=== PATIENT | male | born 1945 | race African-American/Black ===

== ENCOUNTER 2022-10-23 12:51 | Observation (INO) | payer OTHER ==
[2022-10-23 14:01] LABS: BASO % 1.3 % (0-2.0); EOS % 0.2 % (0-4.5); HEMATOCRIT 25.4 % (35.4-49); HEMOGLOBIN 7.3 GM/dL (11.7-16.9); LYMPH % 13.1 % (8-40); MCH 20.1 pg (25.7-33.7); MCHC 28.9 g/dl (32.0-35.9); MEAN CELL VOLUME 69.5 fl (80-96); MONO % 5.1 % (3.8-10.2); NEUT % 80.3 % (42.8-82.8); PLATELET COUNT 319 10^3/uL (134-434); RBC 3.66 M/mm3 (4.00-5.60); RDW 21.6 % (11.9-15.9); RETICULOCYTES 1.59 % (0.5-1.5); WHITE BLOOD COUNT 6.9 K/mm3 (4.0-10.0)
[2022-10-23] MEDS ORDERED: LISINOPRIL 20 MG TABLET PO ONE (14:12)
[2022-10-23] MEDS ORDERED: LISINOPRIL 20 MG TABLET ONE (14:17)
[2022-10-23 14:28] LABS: POTASSIUM 4.4 mmol/L (3.5-5.1)
[2022-10-23 14:30] LABS: ALBUMIN 3.7 g/dl (3.4-5.0); BLOOD UREA NITROGEN 21.3 mg/dL (7-18)
[2022-10-23 14:33] LABS: CREATININE 2.1 mg/dL (0.55-1.3)
[2022-10-23 14:35] LABS: BILIRUBIN,TOTAL 0.2 mg/dL (0.2-1)
[2022-10-23 15:03] LABS: ANISOCYTOSIS 3+; MACROCYTOSIS 1+
[2022-10-23] MEDS: ATORVASTATIN CA 20 MG TABLET (FP) PO SCH (21:27)
[2022-10-23 23:29] VITALS: BMI 25.5
[2022-10-24 09:52] LABS: BASO % 0.6 % (0-2.0); HEMATOCRIT 30.5 % (35.4-49); HEMOGLOBIN 9.4 GM/dL (11.7-16.9); LYMPH % 15.8 % (8-40); MCH 21.6 pg (25.7-33.7); MCHC 30.9 g/dl (32.0-35.9); MEAN CELL VOLUME 69.9 fl (80-96); MEAN PLT VOLUME 8.6 fl (7.5-11.1); MONO % 6.1 % (3.8-10.2); NEUT % 76.5 % (42.8-82.8); PLATELET COUNT 296 10^3/uL (134-434); RBC 4.36 M/mm3 (4.00-5.60); RDW 22.5 % (11.9-15.9); WHITE BLOOD COUNT 7.6 K/mm3 (4.0-10.0)
[2022-10-24 10:14] LABS: POTASSIUM 4.2 mmol/L (3.5-5.1)
[2022-10-24 10:28] LABS: BLOOD UREA NITROGEN 16.8 mg/dL (7-18); CALCIUM 9.2 mg/dL (8.5-10.1); MAGNESIUM 2.2 mg/dL (1.8-2.4)
[2022-10-24 10:29] LABS: ALBUMIN 3.5 g/dl (3.4-5.0)
[2022-10-24 10:31] LABS: CREATININE 1.8 mg/dL (0.55-1.3)
[2022-10-24 10:33] LABS: BILIRUBIN,TOTAL 0.7 mg/dL (0.2-1); TOT PROT 7.6 g/dl (6.4-8.2)
[2022-10-24] MEDS: LISINOPRIL 20 MG TABLET PO SCH (11:13)
[2022-10-24] MEDS: DEXTROSE 5%-NORMAL SALINE 1,000 ML IV SCH (11:13)
[2022-10-24] MEDS: INSULIN SLIDING SCALE (NOVOLOG) 1 VIAL SQ SCH ×3 (12:59→21:30)
[2022-10-24] MEDS: POLYETHYLENE GLYCOL (HEALTHYLAX) 3350 17 GM PACKET PO SCH ×2 (16:44→21:29)
[2022-10-24] MEDS: ATORVASTATIN CA 20 MG TABLET (FP) PO SCH (21:29)
[2022-10-25] MEDS: POLYETHYLENE GLYCOL (HEALTHYLAX) 3350 17 GM PACKET PO SCH ×3 (06:39→22:39)
[2022-10-25] MEDS: INSULIN SLIDING SCALE (NOVOLOG) 1 VIAL SQ SCH ×4 (06:41→22:42)
[2022-10-25] MEDS: LISINOPRIL 20 MG TABLET PO SCH (09:55)
[2022-10-25] MEDS: DEXTROSE 5%-NORMAL SALINE 1,000 ML IV SCH ×2 (09:55→13:50)
[2022-10-25] MEDS ORDERED: PEG 3350/NA SULF BICARB CL/KCL 4000 ML SOLN.RECON PO ONE (10:00)
[2022-10-25] MEDS ORDERED: INSULIN (NOVOLOG) ASPART 100 UNITS/ML 10ML VIAL ONE ×2 (11:16→22:07)
[2022-10-25 12:16] LABS: BASO % 0.6 % (0-2.0); EOS % 0.9 % (0-4.5); HEMATOCRIT 30.8 % (35.4-49); HEMOGLOBIN 9.3 GM/dL (11.7-16.9); LYMPH % 12.4 % (8-40); MCH 21.6 pg (25.7-33.7); MCHC 30.1 g/dl (32.0-35.9); MEAN CELL VOLUME 71.6 fl (80-96); MEAN PLT VOLUME 9.2 fl (7.5-11.1); MONO % 3.4 % (3.8-10.2); NEUT % 82.7 % (42.8-82.8); PLATELET COUNT 285 10^3/uL (134-434); RBC 4.31 M/mm3 (4.00-5.60); RDW 23.1 % (11.9-15.9); WHITE BLOOD COUNT 8.2 K/mm3 (4.0-10.0)
[2022-10-25 12:17] LABS: INR 1.23 (0.83-1.09); PROTHROMBIN TIME (PATIENT) 14.2 SEC (9.7-13.0)
[2022-10-25 12:54] LABS: POTASSIUM 4.9 mmol/L (3.5-5.1)
[2022-10-25 13:43] LABS: CALCIUM 8.7 mg/dL (8.5-10.1)
[2022-10-25 13:44] LABS: BLOOD UREA NITROGEN 13.8 mg/dL (7-18)
[2022-10-25 13:46] LABS: CREATININE 1.8 mg/dL (0.55-1.3)
[2022-10-25] MEDS ORDERED: BISACODYL 5 MG TABLET.DR (FP) PO ONE (20:00)
[2022-10-25] MEDS: ATORVASTATIN CA 20 MG TABLET (FP) PO SCH (22:39)
[2022-10-26] MEDS: POLYETHYLENE GLYCOL (HEALTHYLAX) 3350 17 GM PACKET PO SCH ×2 (05:45→14:19)
[2022-10-26] MEDS ORDERED: INSULIN (NOVOLOG) ASPART 100 UNITS/ML 10ML VIAL ONE (05:58)
[2022-10-26] MEDS: INSULIN SLIDING SCALE (NOVOLOG) 1 VIAL SQ SCH ×2 (06:09→11:16)
[2022-10-26] MEDS: DEXTROSE 5%-NORMAL SALINE 1,000 ML IV SCH (10:13)
[2022-10-26] MEDS: LISINOPRIL 20 MG TABLET PO SCH (10:14)
[2022-10-26 15:25] VITALS: BP 158/95; PULSE 74; RESP 18; TEMP 98.7
[2022-10-26 18:12] LABS: GLIADIN ANTIBODY IGA 6 units (0-19); GLIADIN ANTIBODY IGG 2 units (0-19); TRANSGLUTAMINASE IGG 5 U/mL (0-5)
== END 2022-10-26 16:55 | disposition home or self-care (01) ==
LOC: JER 12:51 → JERBED 16:50 → J8W 20:51
PROVIDERS: ADMIT Internal Medicine; ATTEND Internal Medicine
PROC: 0DBL8ZZ Excision of Transverse Colon, Via Natural or Artificial Opening Endoscopic (ICD-10-PCS; 2022-10-26)
PROC: 0DBM8ZZ Excision of Descending Colon, Via Natural or Artificial Opening Endoscopic (ICD-10-PCS; 2022-10-26)
PROC: 0DBK8ZZ Excision of Ascending Colon, Via Natural or Artificial Opening Endoscopic (ICD-10-PCS; principal; 2022-10-26 13:30)
DX: D50.0 Iron deficiency anemia secondary to blood loss (chronic) (principal); I10 Essential (primary) hypertension; E11.9 Type 2 diabetes mellitus without complications; E78.5 Hyperlipidemia, unspecified; K27.5 Chronic or unspecified peptic ulcer, site unspecified, with perforation; D12.6 Benign neoplasm of colon, unspecified; Z98.0 Intestinal bypass and anastomosis status; Z87.891 Personal history of nicotine dependence
CPT/HCPCS: 36415; 36430; 80048; 80053; 82272; 82728; 82784; 82962; 83010; 83516; 83540; 83550; 83615; 83735; 84155; 84165; 84466; 85025; 85045; 85610; 86334; 86850; 86900; 86901; 86922; 88305-TC; 88342-TC; 93005; 93010; 93306-TC; 99285-25; G0378; P9058

== ENCOUNTER 2022-10-30 07:22 | Observation (INO) | payer OTHER ==
[2022-10-30 08:41] LABS: HEMATOCRIT 32.7 % (35.4-49); HEMOGLOBIN 9.9 GM/dL (11.7-16.9); MCH 21.4 pg (25.7-33.7); MCHC 30.2 g/dl (32.0-35.9); MEAN CELL VOLUME 70.9 fl (80-96); MEAN PLT VOLUME 8.9 fl (7.5-11.1); PLATELET COUNT 284 10^3/uL (134-434); RBC 4.61 M/mm3 (4.00-5.60); RDW 25.5 % (11.9-15.9)
[2022-10-30 08:42] LABS: URINE APPEARANCE CLEAR; URINE BILIRUBIN NEGATIVE (NEGATIVE); URINE COLOR YELLOW; URINE GLUCOSE (UA) NEGATIVE (NEGATIVE); URINE KETONE NEGATIVE (NEGATIVE); URINE LEUK ESTERASE NEGATIVE (NEGATIVE); URINE NITRITE NEGATIVE (NEGATIVE); URINE PROTEIN TRACE (NEGATIVE); URINE UROBILINOGEN 0.2 mg/dL (0.2-1.0)
[2022-10-30 08:47] LABS: INR 1.09 (0.83-1.09); PROTHROMBIN TIME (PATIENT) 12.6 SEC (9.7-13.0)
[2022-10-30 08:50] LABS: ACTIVATED PTT 32.1 SECONDS (25.2-36.5)
[2022-10-30 09:17] LABS: COCAINE, UR NEGATIVE (NEGATIVE); METHADONE, UR NEGATIVE (NEGATIVE); OPIATES, URI NEGATIVE (NEGATIVE); PHENCYCLIDINE,URINE NEGATIVE (NEGATIVE); URINE AMPHETAMINES NEGATIVE (NEGATIVE); URINE BARBITURATES NEGATIVE (NEGATIVE); URINE BENZODIAZEPINES NEGATIVE (NEGATIVE)
[2022-10-30 09:22] LABS: CHLORIDE 111 mmol/L (98-107); POTASSIUM 4.2 mmol/L (3.5-5.1); SODIUM 145 mmol/L (136-145)
[2022-10-30 09:24] LABS: ALBUMIN 3.6 g/dl (3.4-5.0); ANION GAP 8 MMOL/L (8-16); BLOOD UREA NITROGEN 10.4 mg/dL (7-18); CALCIUM 9.3 mg/dL (8.5-10.1); CO2 27 mmol/L (21-32); GLUCOSE,RANDOM 68 mg/dL (74-106); MAGNESIUM 2.2 mg/dL (1.8-2.4)
[2022-10-30 09:27] LABS: CREATININE 1.7 mg/dL (0.55-1.3); SGPT/ALT 22 U/L (13-61)
[2022-10-30 09:28] LABS: SGOT/AST 23 U/L (15-37)
[2022-10-30 09:29] LABS: BILIRUBIN,TOTAL 0.3 mg/dL (0.2-1); TOT PROT 7.8 g/dl (6.4-8.2)
[2022-10-30 09:30] LABS: ALK PHOS 85 U/L (45-117)
[2022-10-30 09:50] LABS: ANISOCYTOSIS 1+; MACROCYTOSIS 0
[2022-10-30] MEDS ORDERED: DEXTROSE 5%-0.45% SALINE 1,000 ML IV SCH (11:45)
[2022-10-30] MEDS ORDERED: hydrALAZINE HCL 20 MG/ML VIAL IVPUSH ONE (17:56)
[2022-10-30 18:11] VITALS: BMI 24.7
[2022-10-30] MEDS: ATORVASTATIN CA 20 MG TABLET (FP) PO SCH (21:21)
[2022-10-31 09:39] LABS: BASO % 0.5 % (0-2.0); HEMATOCRIT 29.8 % (35.4-49); HEMOGLOBIN 9.3 GM/dL (11.7-16.9); LYMPH % 12.6 % (8-40); MCH 21.8 pg (25.7-33.7); MCHC 31.2 g/dl (32.0-35.9); MEAN PLT VOLUME 9.1 fl (7.5-11.1); MONO % 5.9 % (3.8-10.2); PLATELET COUNT 260 10^3/uL (134-434); RBC 4.26 M/mm3 (4.00-5.60); RDW 24.8 % (11.9-15.9)
[2022-10-31 10:10] LABS: POTASSIUM 4.2 mmol/L (3.5-5.1)
[2022-10-31 10:14] LABS: ALBUMIN 3.4 g/dl (3.4-5.0); CALCIUM 9.1 mg/dL (8.5-10.1)
[2022-10-31 10:15] LABS: BLOOD UREA NITROGEN 11.6 mg/dL (7-18); MAGNESIUM 2.2 mg/dL (1.8-2.4)
[2022-10-31 10:17] LABS: CREATININE 1.7 mg/dL (0.55-1.3)
[2022-10-31 10:18] LABS: TOT PROT 7.3 g/dl (6.4-8.2)
[2022-10-31 10:19] LABS: BILIRUBIN,TOTAL 0.4 mg/dL (0.2-1)
[2022-10-31] MEDS: ASPIRIN COATED 81 MG TABLET.EC PO SCH (10:19)
[2022-10-31] MEDS: amLODIPine BESYLATE 10 MG TABLET (FP) PO SCH (10:51)
[2022-10-31] MEDS: ATORVASTATIN CA 20 MG TABLET (FP) PO SCH (22:01)
[2022-10-31] MEDS ORDERED: hydrALAZINE HCL 20 MG/ML VIAL IVPUSH ONE (22:08)
[2022-11-01 08:46] LABS: POTASSIUM 4.5 mmol/L (3.5-5.1)
[2022-11-01 08:48] LABS: CALCIUM 9.6 mg/dL (8.5-10.1)
[2022-11-01 08:53] LABS: CREATININE 1.7 mg/dL (0.55-1.3)
[2022-11-01] MEDS: amLODIPine BESYLATE 10 MG TABLET (FP) PO SCH (09:32)
[2022-11-01] MEDS: ASPIRIN COATED 81 MG TABLET.EC PO SCH (09:32)
[2022-11-01] MEDS ORDERED: amLODIPine BESYLATE 10 MG TABLET (FP) PO SCH (10:00)
[2022-11-01 11:00] VITALS: PULSE 90
[2022-11-01 16:08] VITALS: BP 161/82; RESP 21; TEMP 97.8
== END 2022-11-01 18:06 | disposition home or self-care (01) ==
LOC: JER 07:22 → UNDOADMOB 11:55 → JERBED 11:55 → OBSVTOIN 14:35 → INTOOBSV 14:35 → JERBED 16:29 → J4W 16:29 → JERBED 19:48 → J4W 19:48
PROVIDERS: ADMIT Family Medicine; ATTEND Family Medicine
PROC: 3E0337Z Introduction of Electrolytic and Water Balance Substance into Peripheral Vein, Percutaneous Approach (ICD-10-PCS; principal; 2022-10-30)
PROC: 3E033GC Introduction of Other Therapeutic Substance into Peripheral Vein, Percutaneous Approach (ICD-10-PCS; 2022-10-30)
DX: E16.2 Hypoglycemia, unspecified (principal); E11.22 Type 2 diabetes mellitus with diabetic chronic kidney disease; I12.9 Hypertensive chronic kidney disease with stage 1 through stage 4 chronic kidney disease, or unspecified chronic kidney disease; N17.9 Acute kidney failure, unspecified; Z91.199 Patient's noncompliance with other medical treatment and regimen due to unspecified reason; N28.9 Disorder of kidney and ureter, unspecified; E78.5 Hyperlipidemia, unspecified; G93.41 Metabolic encephalopathy; K27.9 Peptic ulcer, site unspecified, unspecified as acute or chronic, without hemorrhage or perforation; D61.9 Aplastic anemia, unspecified; R55 Syncope and collapse; Z90.49 Acquired absence of other specified parts of digestive tract; K59.00 Constipation, unspecified; K22.10 Ulcer of esophagus without bleeding; Z98.0 Intestinal bypass and anastomosis status; D50.9 Iron deficiency anemia, unspecified; Z87.891 Personal history of nicotine dependence; Z91.018 Allergy to other foods; B96.81 Helicobacter pylori [H. pylori] as the cause of diseases classified elsewhere
CPT/HCPCS: 0241U-QW; 36415; 70450-TC; 71045-TC-FY; 80048; 80053; 80307; 81003; 82533; 82550; 82553; 82962; 83036; 83525; 83605; 83735; 84378; 84484; 85025; 85610; 85730; 86850; 86900; 86901; 87086; 93005; 93010; 96360; 96374; 96376; 99285-25; G0378